=== PATIENT | female | born 1935 | race Caucasian/White ===

== ENCOUNTER 2020-05-21 13:14 | Observation (INO) ==
[2020-05-21] MEDS ORDERED: cefTRIAXone 1 gm/50 mL NS BAG 1 GM/50 ML BAG IV ONE (14:28)
[2020-05-21] MEDS ORDERED: NS 0.9% 1000 ml BAG 500 ML IV ONE (14:30)
[2020-05-21 14:50] LABS: ABS Basophils 0.1 10^3/ul (0-0.2); ABS Eosinophils 0.2 10^3/ul (0-0.6); ABS Lymphocytes 1.9 10^3/ul (1.0-4.8); ABS Monocytes 0.6 10^3/ul (0-0.8); Eosinophil % 2.1 %; Hematocrit 44 % (35-47); Hemoglobin 15.3 g/dL (12.0-16.0); Lymphocyte % 19.5 %; Mean Corpuscular HGB Conc 35 g/dL (31-36); Mean Corpuscular Hemoglobin 32 pg (27-31); Mean Corpuscular Volume 91 fL (80-97); Mean Platelet Volume 9.5 fL (7.4-10.4); Platelet Count 219 10^3/uL (150-450); Red Blood Count 4.86 10^6 /uL (3.70-4.87); Red Cell Distribution Width 13 % (10-15); White Blood Count 9.8 10^3/uL (3.5-10.8)
[2020-05-21 15:09] LABS: Blood Urea Nitrogen 23 mg/dL (6-24); CO2 Carbon Dioxide 20 mmol/L (22-32); Calcium 9.6 mg/dL (8.6-10.3); Chloride 99 mmol/L (101-111); EGFR African American 51.3 (>60); EGFR Non-African American 42.4 (>60); Glucose 164 mg/dL (70-100); Sodium 133 mmol/L (135-145)
[2020-05-21 15:18] LABS: Anion Gap 14 mmol/L (2-11)
[2020-05-21 16:49] LABS: Urine Appearance Turbid; Urine Bilirubin Negative (Negative); Urine Blood 1+ (Negative); Urine Color Yellow; Urine Glucose 2+(150 mg/dL) (Negative); Urine Ketones Negative (Negative); Urine Nitrite Negative (Negative); Urine Protein 2+(100 mg/dL) (Negative); Urine Specific Gravity 1.012 (1.010-1.030); Urine Urobilinogen Negative (Negative)
[2020-05-21 16:54] LABS: Urine Bacteria 1+ (Absent); Urine Red Blood Cell 3+(>10/hpf) (Absent); Urine Squamous Epithelial Cell Present (Absent); Urine White Blood Cell 3+(>20/hpf) (Absent)
[2020-05-21] MEDS ORDERED: Enoxaparin 30 MG/0.3 ML SYR SUBCUT SCH (21:00)
[2020-05-22] MEDS ORDERED: CMCS:Glimepiride 2 mg TAB (NF) PO SCH (07:30)
[2020-05-22 07:33] LABS: BUN/Creatinine Ratio 20.6 (8-20); Calcium 8.6 mg/dL (8.6-10.3); EGFR African American 66.2 (>60); EGFR Non-African American 54.7 (>60); Potassium 3.8 mmol/L (3.5-5.0)
[2020-05-22] MEDS ORDERED: Aspirin EC 81 mg TAB.EC (enteric coated) PO SCH (09:00)
[2020-05-22] MEDS ORDERED: Cholecalciferol (VIT D3) 1,000 unit TAB PO SCH (09:00)
[2020-05-22] MEDS ORDERED: Empaglifozin 10 mg TAB (NF) PO SCH (09:00)
[2020-05-22 09:56] LABS: C Reactive Protein 12.22 mg/L (<8.01)
[2020-05-22] MEDS ORDERED: cefTRIAXone 1 gm/50 mL NS BAG 1 GM/50 ML BAG IVPB SCH ×2 (10:00→16:00)
[2020-05-22 12:02] VITALS: BP 97/51
== END 2020-05-22 12:10 | disposition home or self-care (01) ==
LOC: ED 13:14 → MEDTELE 13:14
PROVIDERS: ADMIT Internal Medicine; ATTEND Internal Medicine

== ENCOUNTER 2022-03-12 14:20 | Inpatient (IN) ==
[2022-03-12] MEDS ORDERED: LACTATED RINGERS IV ONE (14:44)
[2022-03-12] MEDS ORDERED: Cefepime 2 GM in Dextrose 2 GM/50 ML BAG IV ONE (14:44)
[2022-03-12 15:26] LABS: ABS Lymphocytes 0.4 10^3/ul (1.0-4.8); ABS Monocytes 0.1 10^3/ul (0-0.8); ABS Neutrophils 5.3 10^3/ul (1.5-7.7); Hematocrit 32 % (35-47); Hemoglobin 10.7 g/dL (12.0-16.0); Lymphocyte % 7.1 %; Mean Corpuscular HGB Conc 33 g/dL (31-36); Mean Corpuscular Hemoglobin 30 pg (27-31); Mean Corpuscular Volume 89 fL (80-97); Platelet Count 113 10^3/uL (150-450); Red Blood Count 3.62 10^6 /uL (3.70-4.87); Red Cell Distribution Width 15 % (10-15); White Blood Count 5.9 10^3/uL (3.5-10.8)
[2022-03-12] MEDS ORDERED: Norepinephrine 16MCG/ML BAG NS 4,000 MCG/250 ML BAG IV SCH ×2 (16:00→18:39)
[2022-03-12 16:09] LABS: Albumin 3.5 g/dL (3.2-5.2); Calcium 7.8 mg/dL (8.6-10.3); Potassium 3.9 mmol/L (3.5-5.0); Total Bilirubin 0.5 mg/dL (0.2-1.0)
[2022-03-12 16:15] LABS: Albumin/Globulin Ratio 1.7 (1-3); C Reactive Protein 147.55 mg/L (<8.01); Globulin 2.1 g/dL (2-4); Total Protein 5.6 g/dL (6.4-8.9)
[2022-03-12 17:40] LABS: High Sensitivity Troponin 1 Hr 687 pg/mL (<15)
[2022-03-12 17:41] LABS: Activated Partial Thrombo Time 22.8 seconds (26.0-38.0); INR 1.29 (0.89-1.11)
[2022-03-12] MEDS ORDERED: Piperacillin/Tazobac ADVAN 3.375 GM in NS 0.9% 100 ml BAG 100 ML IV ONE (18:23)
[2022-03-12] MEDS ORDERED: Vancomycin per Pharmacy 1 EA NOTE FOLLOW UP PRN (18:45)
[2022-03-12] MEDS ORDERED: Zosyn per Pharmacy NOTE FOLLOW UP SCH (19:00)
[2022-03-12] MEDS ORDERED: Vancomycin 1,250 MG in NS 0.9% 250 ml 250 ML IVPB ONE (19:00)
[2022-03-12] MEDS: Enoxaparin 40 MG/0.4 ML SYR SUBCUT SCH (20:34)
[2022-03-12] MEDS: Norepinephrine 16MCG/ML BAGD5W 4,000 MCG/250 ML BAG IV SCH (20:58)
[2022-03-13] MEDS: ZOSYN 3.375 GM Q8H per EXTENDED INFUSION IV SCH ×4 (01:54→23:54)
[2022-03-13] MEDS: Norepinephrine 16MCG/ML BAGD5W 4,000 MCG/250 ML BAG IV SCH ×2 (01:59→11:09)
[2022-03-13 05:01] LABS: ABS Lymphocytes 0.4 10^3/ul (1.0-4.8); ABS Monocytes 0.2 10^3/ul (0-0.8); ABS Neutrophils 5.8 10^3/ul (1.5-7.7); Eosinophil % 0.1 %; Hematocrit 32 % (35-47); Hemoglobin 10.5 g/dL (12.0-16.0); Lymphocyte % 6.8 %; Mean Corpuscular HGB Conc 33 g/dL (31-36); Mean Corpuscular Hemoglobin 30 pg (27-31); Mean Corpuscular Volume 89 fL (80-97); Mean Platelet Volume 8.2 fL (7.4-10.4); Platelet Count 104 10^3/uL (150-450); Red Blood Count 3.55 10^6 /uL (3.70-4.87); Red Cell Distribution Width 15 % (10-15); White Blood Count 6.4 10^3/uL (3.5-10.8)
[2022-03-13 05:10] LABS: Urine Appearance Clear; Urine Bilirubin Negative (Negative); Urine Color Yellow; Urine Glucose Trace (100mg/dL) (Negative); Urine Ketones Negative (Negative); Urine Specific Gravity 1.015 (1.005-1.030)
[2022-03-13 05:11] LABS: Urine Nitrite Negative (Negative); Urine Protein 1+ (30 mg/dL) (Negative); Urine Urobilinogen 0.2 (Negative) (Negative); Urine pH 5.5 (5.0-9.0)
[2022-03-13 05:20] LABS: Urine Bacteria Absent (Absent); Urine Red Blood Cell 3+(>10/hpf) (Absent); Urine Squamous Epithelial Cell Present (Absent); Urine White Blood Cell Trace(0-5/hpf) (Absent)
[2022-03-13 05:39] LABS: Calcium 7.4 mg/dL (8.6-10.3); Magnesium 1.5 mg/dL (1.9-2.7); Phosphorus 3.7 mg/dL (2.5-5.0); Potassium 3.9 mmol/L (3.5-5.0); Vancomycin Random 13.9 mcg/mL; eGFR CKD-EPI 48.4 (>60)
[2022-03-13] MEDS ORDERED: Vancomycin Random Level NOTE FOLLOW UP ONE (06:00)
[2022-03-13] MEDS ORDERED: Magnesium Sulfate IV 3 GM in NS 0.9% 100 ml BAG 100 ML IVPB ONE (07:30)
[2022-03-13] MEDS: Aspirin EC 81 mg TAB.EC (enteric coated) PO SCH (08:11)
[2022-03-13] MEDS ORDERED: Hydrocortisone INJ 250 MG VIAL IV ONE ×2 (08:43)
[2022-03-13 09:46] LABS: TSH Ultra Thyroid Stim Horm 1.29 mcIU/mL (0.34-5.60)
[2022-03-13] MEDS ORDERED: Dextrose 50% Syringe 50 ml 25 GM/50 ML SYRINGE IV PUSH PRN (15:30)
[2022-03-13] MEDS: Enoxaparin 40 MG/0.4 ML SYR SUBCUT SCH (17:54)
[2022-03-13] MEDS: Hydrocortisone INJ 100 MG/2ML 2 ML VIAL IV SCH ×2 (17:57→23:54)
[2022-03-14 04:54] LABS: ABS Lymphocytes 0.3 10^3/ul (1.0-4.8); ABS Monocytes 0.1 10^3/ul (0-0.8); Eosinophil % 0.2 %; Hematocrit 27 % (35-47); Hemoglobin 9.1 g/dL (12.0-16.0); Lymphocyte % 7.2 %; Mean Corpuscular HGB Conc 33 g/dL (31-36); Mean Corpuscular Hemoglobin 30 pg (27-31); Mean Corpuscular Volume 89 fL (80-97); Red Blood Count 3.07 10^6 /uL (3.70-4.87); Red Cell Distribution Width 15 % (10-15); White Blood Count 4.4 10^3/uL (3.5-10.8)
[2022-03-14] MEDS: Norepinephrine 16MCG/ML BAGD5W 4,000 MCG/250 ML BAG IV SCH (04:57)
[2022-03-14 05:08] LABS: Calcium 6.8 mg/dL (8.6-10.3); Magnesium 2.2 mg/dL (1.9-2.7); Phosphorus 2.6 mg/dL (2.5-5.0); Potassium 3.7 mmol/L (3.5-5.0); eGFR CKD-EPI 49.5 (>60)
[2022-03-14 05:25] LABS: Urine Appearance Slightly Cloudy; Urine Bilirubin Negative (Negative); Urine Blood Trace (Intact) (Negative); Urine Color Yellow; Urine Glucose 1+ (250mg/dL) (Negative); Urine Ketones Negative (Negative); Urine Nitrite Negative (Negative); Urine Protein 2+ (100 mg/dL) (Negative); Urine Specific Gravity 1.028 (1.002-1.030); Urine Urobilinogen 0.2 (Negative) (Negative)
[2022-03-14 06:34] LABS: Urine Amorphous Crystals Present (Absent); Urine Bacteria Absent (Absent); Urine Granular Casts Present (Absent); Urine Red Blood Cell 3+(>10/hpf) (Absent); Urine Squamous Epithelial Cell Present (Absent); Urine White Blood Cell 3+(>20/hpf) (Absent)
[2022-03-14 07:48] LABS: Mean Platelet Volume 9.1 fL (7.4-10.4); Platelet Count 89 10^3/uL (150-450)
[2022-03-14] MEDS ORDERED: ceFAZolin 2 GM in NS PREMIX 2 GM/100 ML BAG IVPB SCH (08:00)
[2022-03-14] MEDS: ZOSYN 3.375 GM Q8H per EXTENDED INFUSION IV SCH (08:19)
[2022-03-14] MEDS: ceFAZolin 2 GM PREMIX 2 GM/50 ML BAG IVPB SCH ×2 (08:45→16:11)
[2022-03-14] MEDS: Aspirin EC 81 mg TAB.EC (enteric coated) PO SCH (09:04)
[2022-03-14] MEDS: Hydrocortisone INJ 100 MG/2ML 2 ML VIAL IV SCH ×2 (09:05→16:47)
[2022-03-14] MEDS: Enoxaparin 40 MG/0.4 ML SYR SUBCUT SCH (16:47)
[2022-03-14] MEDS: Insulin GLARGINE 100 un/ml 10 ml VIAL SUBCUT SCH (21:47)
[2022-03-15] MEDS: ceFAZolin 2 GM PREMIX 2 GM/50 ML BAG IVPB SCH ×4 (00:57→23:37)
[2022-03-15] MEDS: Hydrocortisone INJ 100 MG/2ML 2 ML VIAL IV SCH ×4 (00:57→23:36)
[2022-03-15 05:59] LABS: ABS Lymphocytes 0.6 10^3/ul (1.0-4.8); ABS Monocytes 0.2 10^3/ul (0-0.8); ABS Neutrophils 3.8 10^3/ul (1.5-7.7); Hematocrit 28 % (35-47); Hemoglobin 9.3 g/dL (12.0-16.0); Lymphocyte % 13.7 %; Mean Corpuscular HGB Conc 33 g/dL (31-36); Mean Corpuscular Hemoglobin 30 pg (27-31); Mean Corpuscular Volume 90 fL (80-97); Mean Platelet Volume 8.8 fL (7.4-10.4); Nucleated Red Blood Cells % 0.1; Platelet Count 95 10^3/uL (150-450); Red Blood Count 3.12 10^6 /uL (3.70-4.87); Red Cell Distribution Width 15 % (10-15); White Blood Count 4.6 10^3/uL (3.5-10.8)
[2022-03-15 06:22] LABS: Calcium 7.3 mg/dL (8.6-10.3); Phosphorus 2.2 mg/dL (2.5-5.0); Potassium 3.7 mmol/L (3.5-5.0); eGFR CKD-EPI 42.4 (>60)
[2022-03-15] MEDS: Aspirin EC 81 mg TAB.EC (enteric coated) PO SCH (08:43)
[2022-03-15] MEDS ORDERED: Lidocaine 1% w EPI 1:100,000 MDV 20 ML VIAL INJ ONE (10:18)
[2022-03-15] MEDS ORDERED: Lidocaine 1% w EPI 1:100,000 MDV 50 ML VIAL INJ ONE (13:00)
[2022-03-15] MEDS: Enoxaparin 40 MG/0.4 ML SYR SUBCUT SCH (17:22)
[2022-03-15] MEDS: Insulin GLARGINE 100 un/ml 10 ml VIAL SUBCUT SCH (20:54)
[2022-03-16 05:27] LABS: Hematocrit 27 % (35-47); Hemoglobin 9.4 g/dL (12.0-16.0); Mean Corpuscular HGB Conc 34 g/dL (31-36); Mean Corpuscular Hemoglobin 30 pg (27-31); Mean Corpuscular Volume 89 fL (80-97); Mean Platelet Volume 8.9 fL (7.4-10.4); Platelet Count 106 10^3/uL (150-450); Red Cell Distribution Width 15 % (10-15)
[2022-03-16 05:41] LABS: Calcium 7.7 mg/dL (8.6-10.3); Magnesium 1.9 mg/dL (1.9-2.7); Potassium 3.7 mmol/L (3.5-5.0); eGFR CKD-EPI 45.9 (>60)
[2022-03-16 07:48] LABS: ABS Lymphocytes 0.8 10^3/ul (1.0-4.8); ABS Monocytes 0.4 10^3/ul (0-0.8); ABS Neutrophils 2.9 10^3/ul (1.5-7.7); Eosinophil % 0.1 %; Lymphocyte % 19.4 %; RBC Morphology Normal (Normal)
[2022-03-16] MEDS: Hydrocortisone INJ 100 MG/2ML 2 ML VIAL IV SCH ×2 (10:39→20:54)
[2022-03-16] MEDS: ceFAZolin 2 GM PREMIX 2 GM/50 ML BAG IVPB SCH ×2 (10:42→17:49)
[2022-03-16] MEDS ORDERED: Lactated Ringers 1000 ml BAG 1,000 ML IV SCH (12:00)
[2022-03-16] MEDS ORDERED: CALCIUM GLUCONATE 1GM/50ML NS 1 GM/50 ML BAG IV ONE (13:17)
[2022-03-16] MEDS: Aspirin EC 81 mg TAB.EC (enteric coated) PO SCH (15:24)
[2022-03-16] MEDS: Enoxaparin 40 MG/0.4 ML SYR SUBCUT SCH (17:43)
[2022-03-16] MEDS: Insulin GLARGINE 100 un/ml 10 ml VIAL SUBCUT SCH (20:53)
[2022-03-17] MEDS: ceFAZolin 2 GM PREMIX 2 GM/50 ML BAG IVPB SCH ×4 (00:57→23:13)
[2022-03-17 06:11] LABS: Hematocrit 29 % (35-47); Hemoglobin 9.7 g/dL (12.0-16.0); Mean Corpuscular HGB Conc 34 g/dL (31-36); Mean Corpuscular Hemoglobin 30 pg (27-31); Mean Corpuscular Volume 88 fL (80-97); Mean Platelet Volume 8.1 fL (7.4-10.4); Platelet Count 127 10^3/uL (150-450); Red Blood Count 3.28 10^6 /uL (3.70-4.87); Red Cell Distribution Width 15 % (10-15); White Blood Count 4.6 10^3/uL (3.5-10.8)
[2022-03-17 06:26] LABS: Calcium 7.7 mg/dL (8.6-10.3); Potassium 3.5 mmol/L (3.5-5.0); eGFR CKD-EPI 46.9 (>60)
[2022-03-17 06:37] LABS: ABS Lymphocytes 1.2 10^3/ul (1.0-4.8); ABS Monocytes 0.6 10^3/ul (0-0.8); ABS Neutrophils 2.8 10^3/ul (1.5-7.7); Eosinophil % 0.2 %; Lymphocyte % 25.1 %; Nucleated Red Blood Cells % 0.1
[2022-03-17] MEDS: Hydrocortisone INJ 100 MG/2ML 2 ML VIAL IV SCH (08:41)
[2022-03-17] MEDS: Aspirin EC 81 mg TAB.EC (enteric coated) PO SCH (08:55)
[2022-03-17] MEDS: Enoxaparin 40 MG/0.4 ML SYR SUBCUT SCH (17:58)
[2022-03-17] MEDS: Insulin GLARGINE 100 un/ml 10 ml VIAL SUBCUT SCH (21:38)
[2022-03-18 05:46] LABS: Hematocrit 31 % (35-47); Hemoglobin 10.1 g/dL (12.0-16.0); Mean Corpuscular HGB Conc 33 g/dL (31-36); Mean Corpuscular Hemoglobin 29 pg (27-31); Mean Corpuscular Volume 88 fL (80-97); Mean Platelet Volume 7.6 fL (7.4-10.4); Platelet Count 181 10^3/uL (150-450); Red Blood Count 3.48 10^6 /uL (3.70-4.87); Red Cell Distribution Width 15 % (10-15); White Blood Count 5.9 10^3/uL (3.5-10.8)
[2022-03-18 06:03] LABS: ABS Lymphocytes 1.5 10^3/ul (1.0-4.8); ABS Monocytes 1.1 10^3/ul (0-0.8); ABS Neutrophils 3.3 10^3/ul (1.5-7.7); Eosinophil % 0.5 %; Lymphocyte % 25.7 %; Nucleated Red Blood Cells % 0.2
[2022-03-18 06:08] LABS: Calcium 7.8 mg/dL (8.6-10.3); Potassium 2.9 mmol/L (3.5-5.0); eGFR CKD-EPI 54.2 (>60)
[2022-03-18] MEDS ORDERED: CALCIUM GLUCONATE 1GM/50ML NS 1 GM/50 ML BAG IV ONE (07:33)
[2022-03-18] MEDS ORDERED: KCL 20 MEQ/100 ML IVPREMIX 20 MEQ/100 ML BAG IV ONE (07:36)
[2022-03-18 08:04] LABS: Magnesium 1.3 mg/dL (1.9-2.7)
[2022-03-18] MEDS: Aspirin EC 81 mg TAB.EC (enteric coated) PO SCH (09:00)
[2022-03-18] MEDS ORDERED: Hydrocortisone INJ 100 MG/2ML 2 ML VIAL IV SCH (09:00)
[2022-03-18] MEDS: ceFAZolin 2 GM PREMIX 2 GM/50 ML BAG IVPB SCH ×2 (09:11→16:25)
[2022-03-18] MEDS: ERGOCALCIFEROL PO SCH (10:35)
[2022-03-18] MEDS: KCL 20 MEQ/100 ML IVPREMIX 20 MEQ/100 ML BAG IV SCH ×2 (12:15→14:15)
[2022-03-18] MEDS: Enoxaparin 40 MG/0.4 ML SYR SUBCUT SCH (18:17)
[2022-03-18] MEDS: Insulin GLARGINE 100 un/ml 10 ml VIAL SUBCUT SCH (20:57)
[2022-03-19] MEDS: ceFAZolin 2 GM PREMIX 2 GM/50 ML BAG IVPB SCH ×3 (01:23→19:20)
[2022-03-19 05:54] LABS: Hematocrit 29 % (35-47); Hemoglobin 9.8 g/dL (12.0-16.0); Mean Corpuscular HGB Conc 34 g/dL (31-36); Mean Corpuscular Hemoglobin 30 pg (27-31); Mean Corpuscular Volume 88 fL (80-97); Mean Platelet Volume 7.9 fL (7.4-10.4); Platelet Count 205 10^3/uL (150-450); Red Cell Distribution Width 15 % (10-15); White Blood Count 5.5 10^3/uL (3.5-10.8)
[2022-03-19 06:20] LABS: Calcium 7.7 mg/dL (8.6-10.3); Potassium 2.8 mmol/L (3.5-5.0); eGFR CKD-EPI 61.4 (>60)
[2022-03-19 06:25] LABS: Basophilic Stippling 1+; Polychromasia 1+
[2022-03-19 06:26] LABS: ABS Lymphocytes 1.4 10^3/ul (1.0-4.8); ABS Monocytes 1.1 10^3/ul (0-0.8); ABS Neutrophils 3.1 10^3/ul (1.5-7.7); Eosinophil % 0.3 %; Lymphocyte % 24.7 %; Nucleated Red Blood Cells % 0.1
[2022-03-19] MEDS ORDERED: Magnesium Sulfate IV 3 GM in NS 0.9% 100 ml BAG 100 ML IVPB ONE (07:26)
[2022-03-19 08:06] LABS: Magnesium 1.2 mg/dL (1.9-2.7)
[2022-03-19] MEDS: KCL 20 MEQ/100 ML IVPREMIX 20 MEQ/100 ML BAG IV SCH ×4 (09:24→22:06)
[2022-03-19] MEDS: Aspirin EC 81 mg TAB.EC (enteric coated) PO SCH (09:35)
[2022-03-19] MEDS: ERGOCALCIFEROL PO SCH (09:39)
[2022-03-19] MEDS ORDERED: Naloxone 0.4 mg VIAL 0.4 mg/ml 1 ml VIAL ONE (14:13)
[2022-03-19] MEDS ORDERED: Flumazenil 0.5 mg/5 ml 0.1 MG/ML 5 ml VIAL ONE (14:13)
[2022-03-19] MEDS ORDERED: Midazolam 5 mg/5 ml VIAL 1 mg/ml 5 ml VIAL (5 mg) ONE (14:13)
[2022-03-19] MEDS ORDERED: fentaNYL 100 mcg/2 ml 50 MCG/ML VIAL ONE (14:13)
[2022-03-19] MEDS: Enoxaparin 40 MG/0.4 ML SYR SUBCUT SCH (19:05)
[2022-03-19] MEDS: Insulin GLARGINE 100 un/ml 10 ml VIAL SUBCUT SCH (20:08)
[2022-03-20] MEDS: ceFAZolin 2 GM PREMIX 2 GM/50 ML BAG IVPB SCH ×4 (01:00→22:36)
[2022-03-20 05:24] LABS: Hematocrit 28 % (35-47); Hemoglobin 9.2 g/dL (12.0-16.0); Mean Corpuscular HGB Conc 33 g/dL (31-36); Mean Corpuscular Hemoglobin 29 pg (27-31); Mean Corpuscular Volume 88 fL (80-97); Mean Platelet Volume 7.8 fL (7.4-10.4); Platelet Count 224 10^3/uL (150-450); Red Cell Distribution Width 15 % (10-15); White Blood Count 4.9 10^3/uL (3.5-10.8)
[2022-03-20 05:45] LABS: Calcium 7.2 mg/dL (8.6-10.3); Magnesium 1.4 mg/dL (1.9-2.7); eGFR CKD-EPI 63.1 (>60)
[2022-03-20 05:52] LABS: ABS Lymphocytes 1.2 10^3/ul (1.0-4.8); ABS Monocytes 0.9 10^3/ul (0-0.8); ABS Neutrophils 2.7 10^3/ul (1.5-7.7); Eosinophil % 0.2 %; Lymphocyte % 25.4 %; RBC Morphology Normal (Normal)
[2022-03-20] MEDS ORDERED: Magnesium Sulfate 2 gm BAG 2 GM/50 ML BAG IVPB ONE (07:21)
[2022-03-20] MEDS ORDERED: KCL 20 MEQ/100 ML IVPREMIX 20 MEQ/100 ML BAG IV ONE (07:23)
[2022-03-20] MEDS: Potassium Chlor 20 meq TAB.ER PO SCH ×2 (08:31→19:21)
[2022-03-20] MEDS: Cholecalciferol (VIT D3) 1,000 unit TAB PO SCH (08:31)
[2022-03-20] MEDS: Aspirin EC 81 mg TAB.EC (enteric coated) PO SCH (08:31)
[2022-03-20 11:46] LABS: C Reactive Protein 150.31 mg/L (<8.01)
[2022-03-20] MEDS ORDERED: CALCIUM GLUCONATE 1GM/50ML NS 1 GM/50 ML BAG IV ONE (13:18)
[2022-03-20] MEDS: Enoxaparin 40 MG/0.4 ML SYR SUBCUT SCH (17:18)
[2022-03-20] MEDS: Insulin GLARGINE 100 un/ml 10 ml VIAL SUBCUT SCH (22:35)
[2022-03-21 05:36] LABS: Hematocrit 29 % (35-47); Hemoglobin 9.5 g/dL (12.0-16.0); Mean Corpuscular HGB Conc 33 g/dL (31-36); Mean Corpuscular Hemoglobin 30 pg (27-31); Mean Corpuscular Volume 89 fL (80-97); Mean Platelet Volume 7.8 fL (7.4-10.4); Platelet Count 241 10^3/uL (150-450); Red Blood Count 3.23 10^6 /uL (3.70-4.87); Red Cell Distribution Width 15 % (10-15); White Blood Count 5.5 10^3/uL (3.5-10.8)
[2022-03-21 05:48] LABS: ABS Lymphocytes 1.1 10^3/ul (1.0-4.8); ABS Monocytes 0.9 10^3/ul (0-0.8); ABS Neutrophils 3.4 10^3/ul (1.5-7.7); Eosinophil % 0.3 %; Lymphocyte % 20.8 %; Nucleated Red Blood Cells % 0.1
[2022-03-21 05:55] LABS: Calcium 7.6 mg/dL (8.6-10.3); Magnesium 1.5 mg/dL (1.9-2.7); Potassium 3.3 mmol/L (3.5-5.0); eGFR CKD-EPI 61.4 (>60)
[2022-03-21] MEDS ORDERED: Magnesium Sulfate IV 3 GM in NS 0.9% 100 ml BAG 100 ML IVPB ONE (07:00)
[2022-03-21] MEDS ORDERED: Magnesium Sulfate 2 GM IV (Premix) IVPB ONE (08:00)
[2022-03-21] MEDS: Cholecalciferol (VIT D3) 1,000 unit TAB PO SCH (08:53)
[2022-03-21] MEDS: Aspirin EC 81 mg TAB.EC (enteric coated) PO SCH (08:56)
[2022-03-21] MEDS: Potassium Chlor 20 meq TAB.ER PO SCH ×2 (08:57→20:08)
[2022-03-21] MEDS: ceFAZolin 2 GM PREMIX 2 GM/50 ML BAG IVPB SCH ×2 (08:57→17:09)
[2022-03-21] MEDS ORDERED: Magnesium Sulfate 1 GM IV 1 GM/100 ML BAG IV ONE (09:00)
[2022-03-21] MEDS ORDERED: Magnesium Chloride EC 64 mgTAB PO ONE (10:19)
[2022-03-21] MEDS: Enoxaparin 40 MG/0.4 ML SYR SUBCUT SCH (17:03)
[2022-03-21] MEDS ORDERED: Insulin GLARGINE 100 un/ml 10 ml VIAL SUBCUT SCH (21:00)
[2022-03-22] MEDS: ceFAZolin 2 GM PREMIX 2 GM/50 ML BAG IVPB SCH ×3 (00:55→14:39)
[2022-03-22 05:57] LABS: Hematocrit 30 % (35-47); Hemoglobin 10.1 g/dL (12.0-16.0); Mean Corpuscular HGB Conc 33 g/dL (31-36); Mean Corpuscular Hemoglobin 29 pg (27-31); Mean Corpuscular Volume 88 fL (80-97); Mean Platelet Volume 7.9 fL (7.4-10.4); Platelet Count 270 10^3/uL (150-450); Red Blood Count 3.43 10^6 /uL (3.70-4.87); Red Cell Distribution Width 16 % (10-15); White Blood Count 5.9 10^3/uL (3.5-10.8)
[2022-03-22 06:04] LABS: Calcium 7.8 mg/dL (8.6-10.3); Magnesium 1.8 mg/dL (1.9-2.7); Potassium 3.6 mmol/L (3.5-5.0); eGFR CKD-EPI 59.1 (>60)
[2022-03-22] MEDS: Potassium Chlor 20 meq TAB.ER PO SCH (07:52)
[2022-03-22] MEDS: Aspirin EC 81 mg TAB.EC (enteric coated) PO SCH (07:52)
[2022-03-22] MEDS: Cholecalciferol (VIT D3) 1,000 unit TAB PO SCH (07:52)
[2022-03-22] MEDS ORDERED: Magnesium Sulfate IV 1GM/100ML 1 GM/100 ML BAG IV ONE (07:57)
[2022-03-22 08:26] LABS: ABS Lymphocytes 1.2 10^3/ul (1.0-4.8); ABS Neutrophils 3.8 10^3/ul (1.5-7.7); Anisocytosis 1+; Eosinophil % 0.3 %; Lymphocyte % 19.6 %; Polychromasia 1+
[2022-03-22] MEDS ORDERED: Magnesium Chloride EC 64 mgTAB PO SCH (09:00)
[2022-03-22 16:28] VITALS: BP 140/71
[2022-03-23] MEDS ORDERED: Magnesium Chloride EC 64 mgTAB PO SCH (09:00)
== END 2022-03-22 16:50 | disposition home or self-care (01) | DRG 314 ==
LOC: ED 14:20 → SUATTDRO 16:53 → EDHOLD 16:53 → ICU 18:49 → MEDTELE 03-15 16:28
PROVIDERS: ADMIT Surgery Surgical Critical Care; ATTEND Internal Medicine

== ENCOUNTER 2022-05-25 17:33 | Observation (INO) ==
[2022-05-25] MEDS ORDERED: Ondansetron 4 mg VIAL 2 MG/ML 2 ml VIAL IV ONE (18:23)
[2022-05-25 20:44] LABS: Hematocrit 36 % (35-47); Hemoglobin 11.5 g/dL (12.0-16.0); Mean Corpuscular HGB Conc 32 g/dL (31-36); Mean Corpuscular Hemoglobin 29 pg (27-31); Mean Corpuscular Volume 89 fL (80-97); Mean Platelet Volume 8.5 fL (7.4-10.4); Platelet Count 223 10^3/uL (150-450); Red Blood Count 4.02 10^6 /uL (3.70-4.87); Red Cell Distribution Width 16 % (10-15); White Blood Count 19.4 10^3/uL (3.5-10.8)
[2022-05-25 21:10] LABS: ABS Lymphocytes 1.3 10^3/ul (1.0-4.8); ABS Monocytes 2.1 10^3/ul (0-0.8); ABS Neutrophils 15.9 10^3/ul (1.5-7.7); Eosinophil % 0.1 %; Lymphocyte % 6.8 %
[2022-05-25] MEDS ORDERED: Lactated Ringers 1000 ml BAG 1,000 ML IV ONE ×2 (21:14→21:15)
[2022-05-25 21:18] LABS: Albumin 4.3 g/dL (3.2-5.2); Albumin/Globulin Ratio 1.3 (1-3); Calcium 9.3 mg/dL (8.6-10.3); Globulin 3.3 g/dL (2-4); Potassium 4.6 mmol/L (3.5-5.0); Total Bilirubin 0.4 mg/dL (0.2-1.0); Total Protein 7.6 g/dL (6.4-8.9); eGFR CKD-EPI 26.9 (>60)
[2022-05-26] MEDS ORDERED: Senna TAB 8.6 mg TAB PO PRN (00:51)
[2022-05-26] MEDS ORDERED: Polyethylene Glycol 3350 17 GM PACKET PO PRN (00:51)
[2022-05-26] MEDS ORDERED: Magnesium Hydroxide LIQ 30 ML UDC PO PRN (00:51)
[2022-05-26] MEDS ORDERED: Dextrose 50% Syringe 50 ml 25 GM/50 ML SYRINGE IV PUSH PRN (01:20)
[2022-05-26 02:18] LABS: Urine Appearance Turbid; Urine Bacteria Absent (Absent); Urine Bilirubin Negative (Negative); Urine Blood 2+ (Negative); Urine Color Yellow; Urine Glucose Negative (Negative); Urine Ketones Negative (Negative); Urine Nitrite Positive (Negative); Urine Protein 1+(30 mg/dL) (Negative); Urine Red Blood Cell 1+(3-5/hpf) (Absent); Urine Specific Gravity 1.011 (1.002-1.030); Urine Urobilinogen Negative (Negative); Urine White Blood Cell 3+(>20/hpf) (Absent)
[2022-05-26] MEDS ORDERED: cefTRIAXone 1 gm/50 mL D5W 1 GM/50 ML BAG IV SCH (03:45)
[2022-05-26] MEDS ORDERED: Lactated Ringers 1000 ml BAG 1,000 ML IV ONE ×2 (06:05→13:34)
[2022-05-26 06:07] LABS: Hematocrit 33 % (35-47); Hemoglobin 10.8 g/dL (12.0-16.0); Mean Corpuscular HGB Conc 33 g/dL (31-36); Mean Corpuscular Hemoglobin 29 pg (27-31); Mean Corpuscular Volume 89 fL (80-97); Mean Platelet Volume 8.8 fL (7.4-10.4); Platelet Count 221 10^3/uL (150-450); Red Cell Distribution Width 16 % (10-15); White Blood Count 22.1 10^3/uL (3.5-10.8)
[2022-05-26 06:17] LABS: ABS Basophils 0.1 10^3/ul (0-0.2); ABS Lymphocytes 3.3 10^3/ul (1.0-4.8); ABS Monocytes 1.9 10^3/ul (0-0.8); ABS Neutrophils 16.8 10^3/ul (1.5-7.7); Lymphocyte % 14.8 %
[2022-05-26 06:42] LABS: Calcium 8.7 mg/dL (8.6-10.3); Potassium 4.5 mmol/L (3.5-5.0); eGFR CKD-EPI 25.9 (>60)
[2022-05-26] MEDS: Heparin 5000 UNITS/ML 1 mL VIAL SUBCUT SCH ×3 (06:48→21:06)
[2022-05-26] MEDS ORDERED: Lactated Ringers 1000 ml BAG 1,000 ML IV SCH ×2 (07:00)
[2022-05-26] MEDS: Magnesium Hydroxide LIQ 30 ML UDC PO SCH ×2 (09:14→20:55)
[2022-05-26] MEDS: COLESTIPOL 1 GM PO SCH ×2 (09:14→20:52)
[2022-05-26] MEDS: Aspirin EC 81 mg TAB.EC (enteric coated) PO SCH (09:35)
[2022-05-26] MEDS: Hemorrhoidal OINT 1 TUBE PR PRN ×2 (09:40→21:09)
[2022-05-26 13:38] LABS: C Reactive Protein 80.59 mg/L (<8.01)
[2022-05-26] MEDS ORDERED: Lactated Ringers 1000 ml BAG 500 ML IV ONE (14:02)
[2022-05-26] MEDS: Insulin GLARGINE 100 un/ml 10 ml VIAL SUBCUT SCH (20:53)
[2022-05-27] MEDS: Heparin 5000 UNITS/ML 1 mL VIAL SUBCUT SCH ×3 (05:39→22:31)
[2022-05-27] MEDS: cefTRIAXone 1 gm/50 mL D5W 1 GM/50 ML BAG IV SCH (05:39)
[2022-05-27 06:18] LABS: Hematocrit 28 % (35-47); Hemoglobin 9.3 g/dL (12.0-16.0); Mean Corpuscular HGB Conc 33 g/dL (31-36); Mean Corpuscular Hemoglobin 30 pg (27-31); Mean Corpuscular Volume 89 fL (80-97); Mean Platelet Volume 9.1 fL (7.4-10.4); Platelet Count 172 10^3/uL (150-450); Red Blood Count 3.14 10^6 /uL (3.70-4.87); Red Cell Distribution Width 16 % (10-15); White Blood Count 12.5 10^3/uL (3.5-10.8)
[2022-05-27 06:22] LABS: ABS Eosinophils 0.2 10^3/ul (0-0.6); ABS Neutrophils 8.2 10^3/ul (1.5-7.7); Eosinophil % 1.3 %; Lymphocyte % 24.3 %
[2022-05-27 06:35] LABS: C Reactive Protein 124.71 mg/L (<8.01); Calcium 8.1 mg/dL (8.6-10.3); Potassium 4.6 mmol/L (3.5-5.0)
[2022-05-27] MEDS ORDERED: Lactated Ringers 1000 ml BAG 1,000 ML IV ONE (08:13)
[2022-05-27] MEDS: Magnesium Hydroxide LIQ 30 ML UDC PO SCH ×3 (08:21→20:31)
[2022-05-27] MEDS: Aspirin EC 81 mg TAB.EC (enteric coated) PO SCH (08:22)
[2022-05-27] MEDS ORDERED: Lidocaine 5% OINT TUBE TOPICAL ONE (09:21)
[2022-05-27] MEDS: COLESTIPOL 1 GM PO SCH ×2 (09:54→20:28)
[2022-05-27] MEDS ORDERED: Sodium Phosphate ADULT ENEMA 133 ML BTL PR ONE (17:39)
[2022-05-27] MEDS: Polyethylene Glycol 3350 17 GM PACKET PO SCH (20:26)
[2022-05-27] MEDS: Insulin GLARGINE 100 un/ml 10 ml VIAL SUBCUT SCH (20:37)
[2022-05-27] MEDS: Acetaminophen IV 1 GM/100ML 1,000 MG/100 ML BAG IV SCH (22:29)
[2022-05-28] MEDS: Hemorrhoidal OINT 1 TUBE PR PRN (02:56)
[2022-05-28] MEDS: Acetaminophen IV 1 GM/100ML 1,000 MG/100 ML BAG IV SCH ×2 (05:10→12:58)
[2022-05-28] MEDS: Heparin 5000 UNITS/ML 1 mL VIAL SUBCUT SCH ×2 (05:11→14:04)
[2022-05-28] MEDS: cefTRIAXone 1 gm/50 mL D5W 1 GM/50 ML BAG IV SCH (05:31)
[2022-05-28 06:11] LABS: Calcium 8.1 mg/dL (8.6-10.3); Potassium 4.6 mmol/L (3.5-5.0); eGFR CKD-EPI 58.3 (>60)
[2022-05-28 06:54] LABS: Hematocrit 28 % (35-47); Hemoglobin 9.3 g/dL (12.0-16.0); Mean Corpuscular HGB Conc 34 g/dL (31-36); Mean Corpuscular Hemoglobin 30 pg (27-31); Mean Corpuscular Volume 89 fL (80-97); Mean Platelet Volume 8.7 fL (7.4-10.4); Platelet Count 179 10^3/uL (150-450); Red Blood Count 3.13 10^6 /uL (3.70-4.87); Red Cell Distribution Width 16 % (10-15); White Blood Count 9.2 10^3/uL (3.5-10.8)
[2022-05-28 07:49] LABS: ABS Eosinophils 0.2 10^3/ul (0-0.6); ABS Lymphocytes 2.3 10^3/ul (1.0-4.8); ABS Monocytes 0.9 10^3/ul (0-0.8); ABS Neutrophils 5.7 10^3/ul (1.5-7.7); Eosinophil % 2.3 %; Lymphocyte % 25.2 %
[2022-05-28] MEDS ORDERED: Mineral Oil ENEMA 118 ML/BOTTLE BOTTLE PR ONE (08:35)
[2022-05-28] MEDS: Polyethylene Glycol 3350 17 GM PACKET PO SCH (09:27)
[2022-05-28] MEDS: Magnesium Hydroxide LIQ 30 ML UDC PO SCH (09:27)
[2022-05-28] MEDS: Aspirin EC 81 mg TAB.EC (enteric coated) PO SCH (09:28)
[2022-05-28] MEDS: COLESTIPOL 1 GM PO SCH (09:28)
[2022-05-28 11:04] VITALS: BP 101/64
== END 2022-05-28 16:15 | disposition home or self-care (01) ==
LOC: EDHOLD 17:33 → ED 17:33 → SUATTDRO 05-26 00:20 → EDHOLD 05-26 07:54 → SSU 05-26 09:17
PROVIDERS: ADMIT Internal Medicine; ATTEND Internal Medicine

== ENCOUNTER 2022-06-15 01:56 | Observation (INO) ==
[2022-06-15 02:55] LABS: ABS Eosinophils 0.3 10^3/ul (0-0.6); ABS Lymphocytes 2.3 10^3/ul (1.0-4.8); ABS Monocytes 1.5 10^3/ul (0-0.8); ABS Neutrophils 9.3 10^3/ul (1.5-7.7); Eosinophil % 2.5 %; Hematocrit 33 % (35-47); Hemoglobin 11.1 g/dL (12.0-16.0); Mean Corpuscular HGB Conc 33 g/dL (31-36); Mean Corpuscular Hemoglobin 29 pg (27-31); Mean Corpuscular Volume 86 fL (80-97); Mean Platelet Volume 7.2 fL (7.4-10.4); Platelet Count 442 10^3/uL (150-450); Red Blood Count 3.85 10^6 /uL (3.70-4.87); Red Cell Distribution Width 15 % (10-15); White Blood Count 13.4 10^3/uL (3.5-10.8)
[2022-06-15 03:28] LABS: ALT 12 U/L (7-52); Albumin 3.8 g/dL (3.2-5.2); Albumin/Globulin Ratio 1.1 (1-3); Alkaline Phosphatase 92 U/L (35-149); Blood Urea Nitrogen 42 mg/dL (6-24); CO2 Carbon Dioxide 21 mmol/L (22-32); Calcium 8.5 mg/dL (8.6-10.3); Chloride 98 mmol/L (101-111); Globulin 3.6 g/dL (2-4); Magnesium 1.6 mg/dL (1.9-2.7); Sodium 131 mmol/L (135-145); Total Protein 7.4 g/dL (6.4-8.9)
[2022-06-15 03:37] LABS: Anion Gap 12 mmol/L (2-11); Glucose 49 mg/dL (70-100)
[2022-06-15] MEDS ORDERED: Dextrose 50% Syringe 50 ml 25 GM/50 ML SYRINGE IV PUSH ONE (03:39)
[2022-06-15] MEDS ORDERED: D10W 1000 ml BAG 1,000 ML IV SCH (07:00)
[2022-06-15] MEDS ORDERED: Senna TAB 8.6 mg TAB PO PRN (07:59)
[2022-06-15] MEDS ORDERED: Magnesium Sulfate 2 gm BAG 2 GM/50 ML BAG IVPB ONE (08:04)
[2022-06-15 08:22] LABS: Total Iron Binding Capacity 286 mcg/dL (250-450); Transferrin 204 mg/dL (203-362)
[2022-06-15 08:44] LABS: Ferritin 216.6 ng/mL (11-307)
[2022-06-15 08:48] LABS: Vitamin B12 951 pg/mL (180-914)
[2022-06-15] MEDS: D5NS 0.9% 1000 ml BAG 1,000 ML IV SCH (09:48)
[2022-06-15 10:24] LABS: Urine Appearance Cloudy; Urine Bilirubin Negative (Negative); Urine Color Yellow; Urine Glucose Negative (Negative); Urine Ketones Negative (Negative)
[2022-06-15 10:25] LABS: Urine Blood 3+ (Large) (Negative); Urine Nitrite Negative (Negative); Urine Protein 3+ (>=300 mg/dL) (Negative); Urine Urobilinogen 0.2 (Negative) (Negative); Urine pH 5.5 (5.0-9.0)
[2022-06-15 10:32] LABS: Urine Specific Gravity 1.022 (1.002-1.030)
[2022-06-15 10:34] LABS: Urine Bacteria 1+ (Absent); Urine Red Blood Cell 3+(>10/hpf) (Absent); Urine Squamous Epithelial Cell Present (Absent); Urine White Blood Cell 3+(>20/hpf) (Absent)
[2022-06-15] MEDS: Aspirin EC 81 mg TAB.EC (enteric coated) PO SCH (11:23)
[2022-06-15] MEDS: Lidocaine PATCH 5% PATCH TRANSDERM SCH (11:25)
[2022-06-15] MEDS: Polyethylene Glycol 3350 17 GM PACKET PO SCH (11:26)
[2022-06-15] MEDS ORDERED: cefTRIAXone 1 gm/50 mL D5W 1 GM/50 ML BAG IV SCH (21:00)
[2022-06-15] MEDS ORDERED: Enoxaparin 30 MG/0.3 ML SYR SUBCUT SCH (21:00)
[2022-06-16] MEDS: D5NS 0.9% 1000 ml BAG 1,000 ML IV SCH
[2022-06-16 06:51] LABS: Hematocrit 27 % (35-47); Mean Corpuscular HGB Conc 34 g/dL (31-36); Mean Corpuscular Hemoglobin 29 pg (27-31); Mean Corpuscular Volume 84 fL (80-97); Platelet Count 388 10^3/uL (150-450); Red Blood Count 3.16 10^6 /uL (3.70-4.87); Red Cell Distribution Width 15 % (10-15); White Blood Count 9.3 10^3/uL (3.5-10.8)
[2022-06-16 07:15] LABS: Calcium 7.3 mg/dL (8.6-10.3); Potassium 4.2 mmol/L (3.5-5.0); eGFR CKD-EPI 44.5 (>60)
[2022-06-16] MEDS: Polyethylene Glycol 3350 17 GM PACKET PO SCH (08:37)
[2022-06-16] MEDS: Aspirin EC 81 mg TAB.EC (enteric coated) PO SCH (08:37)
[2022-06-16] MEDS: Lidocaine PATCH 5% PATCH TRANSDERM SCH (08:38)
[2022-06-16 14:52] VITALS: BP 116/75
== END 2022-06-16 15:48 | disposition home or self-care (01) ==
LOC: ED 01:56 → EDHOLD 01:56 → MED 14:01
PROVIDERS: ADMIT Hospitalist; ATTEND Hospitalist

== ENCOUNTER 2022-07-18 13:28 | Inpatient (IN) ==
[2022-07-18] MEDS ORDERED: LORazepam 2 mg VIAL 1 ml ONE (14:11)
[2022-07-18] MEDS ORDERED: LORazepam 2 mg VIAL 1 ml IM ONE (14:12)
[2022-07-18] MEDS ORDERED: levETIRAcetam 1000MG IVPREMIX 1,000 MG/100 ML BAG IVPB ONE (14:37)
[2022-07-18 14:40] LABS: Hematocrit 31 % (35-47); Hemoglobin 9.9 g/dL (12.0-16.0); Mean Corpuscular HGB Conc 32 g/dL (31-36); Mean Corpuscular Hemoglobin 27 pg (27-31); Mean Corpuscular Volume 85 fL (80-97); Mean Platelet Volume 8.1 fL (7.4-10.4); Platelet Count 345 10^3/uL (150-450); Red Blood Count 3.67 10^6 /uL (3.70-4.87); Red Cell Distribution Width 17 % (10-15); White Blood Count 15.9 10^3/uL (3.5-10.8)
[2022-07-18 15:34] LABS: ABS Basophils 0.1 10^3/ul (0-0.2); ABS Eosinophils 0.1 10^3/ul (0-0.6); ABS Lymphocytes 3.9 10^3/ul (1.0-4.8); ABS Monocytes 0.9 10^3/ul (0-0.8); Eosinophil % 0.5 %; Lymphocyte % 24.6 %
[2022-07-18 15:38] LABS: Albumin 3.2 g/dL (3.2-5.2); Albumin/Globulin Ratio 0.9 (1-3); Calcium 7.8 mg/dL (8.6-10.3); Creatinine, Serum 11.53 mg/dL (0.51-0.95); Globulin 3.4 g/dL (2-4); Magnesium 2.2 mg/dL (1.9-2.7); Phosphorus 11.6 mg/dL (2.5-5.0); Total Bilirubin 0.2 mg/dL (0.2-1.0); Total Protein 6.6 g/dL (6.4-8.9); eGFR CKD-EPI 2.9 (>60)
[2022-07-18 15:43] LABS: Potassium 6.8 mmol/L (3.5-5.0)
[2022-07-18] MEDS ORDERED: Dextrose 50% Syringe 50 ml 25 GM/50 ML SYRINGE IV PUSH ONE (15:45)
[2022-07-18] MEDS ORDERED: CALCIUM GLUCONATE 1GM/50ML NS 1 GM/50 ML BAG IV ONE ×2 (15:45→19:39)
[2022-07-18] MEDS ORDERED: Dextrose 50% VIAL 50 ml IV ONE (15:45)
[2022-07-18 17:36] LABS: Activated Partial Thrombo Time 26.9 seconds (26.0-38.0); INR 1.26 (0.88-1.18)
[2022-07-18 18:54] LABS: Hepatitis B Surface Antigen Nonreactive (Nonreactive)
[2022-07-18] MEDS ORDERED: Zosyn per Pharmacy NOTE FOLLOW UP SCH (19:00)
[2022-07-18 19:08] LABS: PCO2 Arterial 37 mmHg (35-45); PO2 Arterial 173 mmHg (80-100)
[2022-07-18 19:11] LABS: Hepatitis B Surface Ab Not Immune (Immune)
[2022-07-18 19:30] LABS: Albumin/Globulin Ratio 0.9 (1-3); Calcium 7.8 mg/dL (8.6-10.3); Creatinine, Serum 11.71 mg/dL (0.51-0.95); Globulin 3.2 g/dL (2-4); Magnesium 2.3 mg/dL (1.9-2.7); Phosphorus 11.5 mg/dL (2.5-5.0); Total Bilirubin 0.2 mg/dL (0.2-1.0); Total Protein 6.2 g/dL (6.4-8.9); eGFR CKD-EPI 2.9 (>60)
[2022-07-18 19:36] LABS: Potassium 7.7 mmol/L (3.5-5.0)
[2022-07-18] MEDS: Heparin 1,000 UNIT/ML 10 ml (10,000 UNITS) CATHLAB/DIALYSIS DIALYSIS ONE ×4 (19:46→23:00)
[2022-07-18] MEDS ORDERED: Phenylephrine 40 mcg/mL 10mL (400mcg) SYRINGE IV PUSH PRN (21:18)
[2022-07-18] MEDS ORDERED: fentaNYL 100 mcg/2 ml 50 MCG/ML VIAL IV SLOW PU ONE ×2 (21:18→21:51)
[2022-07-18] MEDS ORDERED: fentaNYL 100 mcg/2 ml 50 MCG/ML VIAL ONE (21:19)
[2022-07-19] MEDS: Heparin 5000 UNITS/ML 1 mL VIAL SUBCUT SCH ×4 (01:03→20:07)
[2022-07-19] MEDS: fentaNYL 100 mcg/2 ml 50 MCG/ML VIAL IV SLOW PU PRN ×5 (02:35→23:09)
[2022-07-19] MEDS: ZOSYN 3.375 GM Q12H per EXTENDED INFUSION IV SCH ×2 (03:33→18:07)
[2022-07-19 04:28] LABS: ABS Eosinophils 0.1 10^3/ul (0-0.6); ABS Lymphocytes 1.8 10^3/ul (1.0-4.8); ABS Monocytes 0.6 10^3/ul (0-0.8); ABS Neutrophils 8.9 10^3/ul (1.5-7.7); Eosinophil % 0.6 %; Hematocrit 28 % (35-47); Lymphocyte % 15.5 %; Mean Corpuscular HGB Conc 32 g/dL (31-36); Mean Corpuscular Hemoglobin 27 pg (27-31); Mean Corpuscular Volume 83 fL (80-97); Mean Platelet Volume 7.7 fL (7.4-10.4); Platelet Count 283 10^3/uL (150-450); Red Blood Count 3.39 10^6 /uL (3.70-4.87); Red Cell Distribution Width 17 % (10-15); White Blood Count 11.4 10^3/uL (3.5-10.8)
[2022-07-19 05:49] LABS: Albumin 2.9 g/dL (3.2-5.2); Calcium 8.1 mg/dL (8.6-10.3); Total Bilirubin 0.2 mg/dL (0.2-1.0)
[2022-07-19 05:55] LABS: Albumin/Globulin Ratio 0.9 (1-3); Creatinine, Serum 6.9 mg/dL (0.51-0.95); Globulin 3.1 g/dL (2-4); eGFR CKD-EPI 5.4 (>60)
[2022-07-19 05:58] LABS: Potassium 5.7 mmol/L (3.5-5.0)
[2022-07-19] MEDS: Levothyroxine 100 MCG/5 ML VIAL IV SCH (07:29)
[2022-07-19] MEDS: Pantoprazole VIAL 40 MG VIAL IV SCH (07:30)
[2022-07-19] MEDS ORDERED: Heparin *DIALYSIS* ONLY 1,000 UNITS/ML VIAL DIALYSIS SCH (09:00)
[2022-07-19] MEDS ORDERED: fentaNYL 100 mcg/2 ml 50 MCG/ML VIAL IV SLOW PU ONE (09:11)
[2022-07-19] MEDS: Heparin 1,000 UNIT/ML 10 ml (10,000 UNITS) CATHLAB/DIALYSIS DIALYSIS PRN ×5 (13:55→18:20)
[2022-07-19] MEDS ORDERED: Lorazepam PYXIS KEY PRN (15:43)
[2022-07-19] MEDS ORDERED: Ondansetron 4 mg VIAL 2 MG/ML 2 ml VIAL IV PRN (15:44)
[2022-07-19] MEDS ORDERED: Morphine 2 MG/ML SYRINGE IV PRN (15:44)
[2022-07-19] MEDS ORDERED: Norepinephrine 16MCG/ML BAGD5W 4,000 MCG/250 ML BAG IV ONE (15:51)
[2022-07-19] MEDS ORDERED: NS 0.9% 500 ml BAG 500 ML IV ONE (16:04)
[2022-07-19] MEDS: Senna TAB 8.6 mg TAB PO SCH (16:14)
[2022-07-19] MEDS: LORazepam 2 mg VIAL 1 ml IV PUSH PRN (20:07)
[2022-07-19] MEDS: Polyethylene Glycol 3350 17 GM PACKET PO SCH ×2 (20:08→20:09)
[2022-07-20] MEDS: Morphine 2 MG/ML SYRINGE IV PRN (03:16)
[2022-07-20 04:24] LABS: ABS Basophils 0.1 10^3/ul (0-0.2); ABS Eosinophils 0.1 10^3/ul (0-0.6); ABS Lymphocytes 1.9 10^3/ul (1.0-4.8); ABS Neutrophils 8.5 10^3/ul (1.5-7.7); Eosinophil % 0.5 %; Hematocrit 25 % (35-47); Hemoglobin 7.9 g/dL (12.0-16.0); Lymphocyte % 16.6 %; Mean Corpuscular HGB Conc 32 g/dL (31-36); Mean Corpuscular Hemoglobin 27 pg (27-31); Mean Corpuscular Volume 84 fL (80-97); Mean Platelet Volume 7.6 fL (7.4-10.4); Platelet Count 258 10^3/uL (150-450); Red Blood Count 2.97 10^6 /uL (3.70-4.87); Red Cell Distribution Width 17 % (10-15); White Blood Count 11.6 10^3/uL (3.5-10.8)
[2022-07-20 05:13] LABS: Calcium 7.6 mg/dL (8.6-10.3); Magnesium 1.8 mg/dL (1.9-2.7); Potassium 4.5 mmol/L (3.5-5.0); eGFR CKD-EPI 10.4 (>60)
[2022-07-20] MEDS ORDERED: Magnesium Sulfate IV 1GM/100ML 1 GM/100 ML BAG IV ONE (05:54)
[2022-07-20] MEDS: Heparin 5000 UNITS/ML 1 mL VIAL SUBCUT SCH ×2 (06:26→15:22)
[2022-07-20] MEDS: Levothyroxine 100 MCG/5 ML VIAL IV SCH (06:26)
[2022-07-20] MEDS: ZOSYN 3.375 GM Q12H per EXTENDED INFUSION IV SCH ×2 (06:27→18:01)
[2022-07-20] MEDS: Heparin 1,000 UNIT/ML 10 ml (10,000 UNITS) CATHLAB/DIALYSIS DIALYSIS PRN ×5 (07:20→11:35)
[2022-07-20] MEDS: Senna TAB 8.6 mg TAB PO SCH ×2 (08:38→12:51)
[2022-07-20] MEDS: Pantoprazole VIAL 40 MG VIAL IV SCH (08:38)
[2022-07-20] MEDS: Polyethylene Glycol 3350 17 GM PACKET PO SCH ×3 (08:38→20:09)
[2022-07-20] MEDS ORDERED: Acetaminophen IV 1 GM/100ML 1,000 MG/100 ML BAG IV ONE (12:49)
[2022-07-20] MEDS: Acetaminophen IV 1 GM/100ML 1,000 MG/100 ML BAG IV PRN (12:51)
[2022-07-20] MEDS: fentaNYL 100 mcg/2 ml 50 MCG/ML VIAL IV SLOW PU PRN (18:27)
[2022-07-20] MEDS: LORazepam 2 mg VIAL 1 ml IV PUSH PRN (23:11)
[2022-07-21] MEDS: LORazepam 2 mg VIAL 1 ml IV PUSH PRN ×4 (02:59→22:25)
[2022-07-21] MEDS: ZOSYN 3.375 GM Q12H per EXTENDED INFUSION IV SCH (05:16)
[2022-07-21] MEDS: Senna TAB 8.6 mg TAB PO SCH ×2 (10:02→10:29)
[2022-07-21] MEDS: Polyethylene Glycol 3350 17 GM PACKET PO SCH ×3 (10:02→22:29)
[2022-07-21] MEDS: Acetaminophen IV 1 GM/100ML 1,000 MG/100 ML BAG IV PRN ×2 (11:08→21:37)
[2022-07-21] MEDS: Morphine 2 MG/ML SYRINGE IV PRN ×2 (17:14→21:36)
[2022-07-21] MEDS: Lidocaine PATCH 5% PATCH TRANSDERM SCH (17:15)
[2022-07-22] MEDS: fentaNYL 100 mcg/2 ml 50 MCG/ML VIAL IV SLOW PU PRN ×7 (06:46→22:16)
[2022-07-22] MEDS: Senna TAB 8.6 mg TAB PO SCH (07:54)
[2022-07-22] MEDS: LORazepam 2 mg VIAL 1 ml IV PUSH PRN ×2 (07:54→22:17)
[2022-07-22] MEDS: Polyethylene Glycol 3350 17 GM PACKET PO SCH ×2 (07:55→19:25)
[2022-07-22] MEDS: Lidocaine PATCH 5% PATCH TRANSDERM SCH (08:00)
[2022-07-22] MEDS: Acetaminophen IV 1 GM/100ML 1,000 MG/100 ML BAG IV PRN (10:56)
[2022-07-22] MEDS: Morphine 2 MG/ML SYRINGE IV PRN (18:32)
[2022-07-23] MEDS: Morphine 2 MG/ML SYRINGE IV PRN ×4 (00:21→06:33)
[2022-07-23] MEDS: fentaNYL 100 mcg/2 ml 50 MCG/ML VIAL IV SLOW PU PRN (01:05)
[2022-07-23] MEDS: Senna TAB 8.6 mg TAB PO SCH (09:11)
[2022-07-23] MEDS: Acetaminophen IV 1 GM/100ML 1,000 MG/100 ML BAG IV PRN (09:12)
[2022-07-23] MEDS: Lidocaine PATCH 5% PATCH TRANSDERM SCH (09:12)
[2022-07-23] MEDS: Polyethylene Glycol 3350 17 GM PACKET PO SCH ×2 (09:12→20:03)
[2022-07-24] MEDS: Lidocaine PATCH 5% PATCH TRANSDERM SCH (10:15)
[2022-07-24] MEDS: Polyethylene Glycol 3350 17 GM PACKET PO SCH ×2 (10:16→21:08)
[2022-07-24] MEDS: Senna TAB 8.6 mg TAB PO SCH (10:16)
[2022-07-24] MEDS ORDERED: Ondansetron ODT 4 mg TAB 4 MG TAB SL PRN (20:38)
[2022-07-25 06:14] LABS: Hematocrit 29 % (35-47); Hemoglobin 8.9 g/dL (12.0-16.0); Mean Corpuscular HGB Conc 31 g/dL (31-36); Mean Corpuscular Hemoglobin 28 pg (27-31); Mean Corpuscular Volume 90 fL (80-97); Mean Platelet Volume 7.5 fL (7.4-10.4); Platelet Count 313 10^3/uL (150-450); Red Blood Count 3.17 10^6 /uL (3.70-4.87); Red Cell Distribution Width 18 % (10-15); White Blood Count 10.2 10^3/uL (3.5-10.8)
[2022-07-25 06:43] LABS: Calcium 7.5 mg/dL (8.6-10.3); Magnesium 1.9 mg/dL (1.9-2.7); Potassium 4.9 mmol/L (3.5-5.0)
[2022-07-25 06:48] LABS: Creatinine, Serum 8.87 mg/dL (0.51-0.95)
[2022-07-25 07:27] LABS: RBC Morphology Normal (Normal)
[2022-07-25 07:28] LABS: ABS Eosinophils 0.3 10^3/ul (0-0.6); ABS Lymphocytes 2.3 10^3/ul (1.0-4.8); ABS Neutrophils 6.5 10^3/ul (1.5-7.7); Eosinophil % 2.6 %; Lymphocyte % 22.7 %; Nucleated Red Blood Cells % 0.2
[2022-07-25] MEDS: Lidocaine PATCH 5% PATCH TRANSDERM SCH (09:17)
[2022-07-25] MEDS: Polyethylene Glycol 3350 17 GM PACKET PO SCH ×2 (09:18→19:14)
[2022-07-25] MEDS: Senna TAB 8.6 mg TAB PO SCH (09:18)
[2022-07-26] MEDS: Polyethylene Glycol 3350 17 GM PACKET PO SCH ×2 (10:08→20:55)
[2022-07-26] MEDS: Lidocaine PATCH 5% PATCH TRANSDERM SCH (10:10)
[2022-07-26] MEDS: Senna TAB 8.6 mg TAB PO SCH (10:13)
[2022-07-27 07:37] VITALS: BP 121/79
[2022-07-27] MEDS: Polyethylene Glycol 3350 17 GM PACKET PO SCH ×3 (07:59→19:32)
[2022-07-27] MEDS: Lidocaine PATCH 5% PATCH TRANSDERM SCH (07:59)
[2022-07-27] MEDS: Senna TAB 8.6 mg TAB PO SCH (08:00)
[2022-07-27] MEDS: Morphine ORAL CONCENTRATE 5 MG/0.25 ML ORAL.SYRIN SL PRN ×2 (16:36→23:29)
[2022-07-28] MEDS: Morphine ORAL CONCENTRATE 5 MG/0.25 ML ORAL.SYRIN SL PRN ×3 (04:55→22:17)
[2022-07-28] MEDS: Polyethylene Glycol 3350 17 GM PACKET PO SCH ×2 (10:13→20:12)
[2022-07-28] MEDS: Lidocaine PATCH 5% PATCH TRANSDERM SCH (10:14)
[2022-07-28] MEDS: Senna TAB 8.6 mg TAB PO SCH (10:17)
[2022-07-29] MEDS: Morphine ORAL CONCENTRATE 5 MG/0.25 ML ORAL.SYRIN SL PRN ×2 (06:07→12:14)
[2022-07-29] MEDS: Lidocaine PATCH 5% PATCH TRANSDERM SCH (08:36)
[2022-07-29] MEDS: Polyethylene Glycol 3350 17 GM PACKET PO SCH ×2 (08:38→22:13)
[2022-07-29] MEDS: Senna TAB 8.6 mg TAB PO SCH (09:22)
[2022-07-30] MEDS: Polyethylene Glycol 3350 17 GM PACKET PO SCH ×2 (08:20→21:23)
[2022-07-30] MEDS: Senna TAB 8.6 mg TAB PO SCH (08:20)
[2022-07-30] MEDS: Lidocaine PATCH 5% PATCH TRANSDERM SCH (08:56)
[2022-07-30] MEDS: Morphine ORAL CONCENTRATE 5 MG/0.25 ML ORAL.SYRIN SL PRN (13:38)
[2022-07-31] MEDS: Morphine ORAL CONCENTRATE 5 MG/0.25 ML ORAL.SYRIN SL PRN ×2 (04:33→06:27)
[2022-07-31] MEDS ORDERED: Morphine ORAL CONCENTRATE 5 MG/0.25 ML ORAL.SYRIN SL PRN (07:52)
[2022-07-31] MEDS: Lidocaine PATCH 5% PATCH TRANSDERM SCH (08:41)
[2022-07-31] MEDS: Senna TAB 8.6 mg TAB PO SCH (08:43)
[2022-07-31] MEDS: Polyethylene Glycol 3350 17 GM PACKET PO SCH (08:43)
[2022-07-31] MEDS: Morphine 2 MG/ML SYRINGE IV PRN ×5 (09:39→15:46)
[2022-07-31 13:38] LABS: Rapid COVID-19 Molecular Undetected (Undetected)
== END 2022-07-31 16:07 | disposition expired | DRG 683 ==
LOC: ED 13:28 → EDHOLD 17:08 → SUATTDRO 17:08 → ICU 19:03 → MED 07-20 16:23
PROVIDERS: ADMIT Surgery Surgical Critical Care; ATTEND Internal Medicine Hematology & Oncology